=== PATIENT | female | born 1985 | race Caucasian/White ===

== ENCOUNTER 2017-04-23 17:04 | Inpatient (IN) ==
--- NOTE | 2017-04-23 18:26 | Emergency Department Note ---
Disposition Clinical Impression: Pyelonephritis Nausea & vomiting Qualifiers: Vomiting type: unspecified Vomiting Intractability: unspecified Qualified Code( s): R11.2 - Nausea with vomiting, unspecified Disposition: Admitted As Inpatient Condition: Fair Referrals: Denisse Boogie CNP [Primary Care Provider] - Time of Disposition: 21:28 Abdominal Pain HPI - General Chief Complaint: ED Abdominal Pain Stated Complaint: Lower R ABD pain/NV Time Seen by Provider: 04/23/17 18:19 Source: patient Mode of arrival: ambulatory Limitations: no limitations Nursing Notes Reviewed: Yes Vital Signs Reviewed: Yes - History of Present Illness HPI Narrative: 31-year-old who comes in complaining of right lower quadrant abdominal pain that began about 3 days ago. Been persistent and getting worse according to the patient. She does have a history of polycystic disease. No history of kidney stones denies urinary symptoms. Pt Subjective Complaint: abdominal pain Onset (ago): day(s) Consistency: constant (3) Location: RLQ Pain Severity: moderate, severe Pain Scale: 8 Quality: stabbing, aching Radiation: none Migration to: no migration Improves with: nothing Worsens with: nothing Associated symptoms: Reports: nausea Treatments prior to arrival: none - Related Data Home Medications Medication Instructions Recorded Confirmed No Known Home Drugs 02/07/17 02/07/17 Allergies Allergy/AdvReac Type Severity Reaction Status Date / Time No Known Allergies Allergy Verified 04/23/17 17:44 Abdominal Pain PMH - Past Medical History Medical history: Reports: no medical history Female Surgical History: Reports: other DOG HANDLER OR TRAINER history: Reports: no DOG HANDLER OR TRAINER history Psychiatric history: Reports: no psych history - Social History Smoking status: Never smoker Alcohol use: Reports: rarely Drug use: Reports: none Physical Exam - General Limitations: no limitations General appearance: alert - Head Head exam: atraumatic, normocephalic, normal inspection - Eye Eye exam: Present: normal appearance, PERRL, EOMI - ENT ENT exam: normal exam, normal oropharynx, mucous membranes moist - Neck Neck exam: Present: normal inspection, full ROM, trachea midline - Chest Chest inspection: Present: normal inspection, symmetric chest wall rise - Respiratory Respiratory exam: Present: normal lung sounds bilaterally - Cardiovascular Cardiovascular exam: Present: regular rate, normal rhythm, normal heart sounds - Abdominal Exam Abdominal exam: Present: soft, tenderness. Absent: guarding, rebound Abdominal tenderness: Present: RLQ - Extremities Exam Extremities exam: Present: normal inspection, full ROM. Absent: tenderness, pedal edema - Expanded Lower Extremity Exam Neurovascular/Tendon exam: Absent: motor deficit, sensory deficit, tendon deficit - Back Exam Back exam: Present: normal inspection, full ROM. Absent: tenderness - Neurological Exam Neurological exam: Present: alert, oriented X3 - Psychiatric Psychiatric exam: Present: normal affect, normal mood - Skin Skin exam: Present: warm, dry, intact, normal color Course - Reevaluation(s) Reevaluation #1: 31-year-old with a history gastric bypass who comes in with abdominal pain nausea vomiting tempt her 101.1. Workup shows urine with 30-50 white cells per high-powered field white count slightly elevated. CT scan is consistent with a pyelonephritis. Patient will be admitted for IV antibiotics and fluids. Time: 21:27 - Consultations Consultation #1: Discussed with , admit. Time: 21:28 Vital Signs Temperature 101.1 F H 04/23/17 17:44 Pulse Rate 89 04/23/17 17:44 Respiratory Rate 20 04/23/17 17:44 Blood Pressure 135/90 04/23/17 17:44 O2 Sat by Pulse Oximetry 100 04/23/17 17:44 Temperature 101.1 F H 04/23/17 17:44 Pulse Rate 89 04/23/17 17:44 Respiratory Rate 20 04/23/17 17:44 Blood Pressure 135/90 04/23/17 17:44 O2 Sat by Pulse Oximetry 100 04/23/17 17:44 Oxygen Delivery Oxygen Delivery Room Air Abdominal Pain - Lab Data Lab results reviewed: Yes I reviewed the patient's lab results. Result diagrams: 04/23/17 18:45 04/23/17 18:45 Lab Results 04/23/17 04/23/17 04/23/17 Range/Units 18:45 18:45 18:45 WBC 11.4 H (4.3-11.1) K/mcL RBC 4.97 (3.82-4.97) M/mcL Hgb 11.7 (11.5-15.4) g/dL Hct 37.5 (35.3-44.9) % MCV 75.5 L (83.0-100.0) fL MCH 23.5 L (28.0-33.3) pg MCHC 31.2 L (31.6-35.5) g/dL RDW 15.8 H (11.5-14.5) % Plt Count 327 (140-400) K/mcL MPV 10.4 (9.4-12.4) fL Immature Gran % 0.4 (0-4) % Seg Neutrophils % 74.2 % Lymphocytes % 17.2 % Monocytes % 7.3 % Eosinophils % 0.5 % Basophils % 0.4 % Neutrophils # 8.4 (1.6-8.9) K/mcL Lymphocytes # 2.0 (0.6-4.6) K/mcL Monocytes # 0.8 (0.0-1.3) K/mcL Eosinophils # 0.1 (0.0-0.6) K/mcL Basophils # 0.0 (0.0-0.2) K/mcL Sodium 138 (136-145) mEq/L Potassium 3.6 (3.5-4.5) mEq/L Chloride 105 (98-109) mEq/L Carbon Dioxide 24 (19-29) mEq/L BUN 6 L (7-20) mg/dL Creatinine 0.81 (0.57-1.11) mg/dL Est GFR ( Amer) > 60 (> 60) Est GFR (Non-Af Amer) > 60 (> 60) BUN/Creatinine Ratio 7 (6-26) Glucose 82 (70-99) mg/dL Calculated Osmolality 283 (280-300) Lactic Acid (0.5-2.2) mmol/L Calcium 9.7 (8.6-10.8) mg/dL Total Bilirubin 0.4 (0.2-1.2) mg/dL AST 15 (5-34) Units/L ALT 15 (0-55) Units/L Alkaline Phosphatase 88 (38-126) Units/L Serum Total Protein 7.9 (6.0-8.3) g/dL Albumin 3.9 (3.5-5.0) g/dL Globulin 4.0 H (2.4-3.5) g/dL Albumin/Globulin Ratio 1.0 L (1.1-2.2) Amylase 23 L (25-125) Units/L Lipase < 10 (8-78) Units/L Serum , Qual Negative (Negative) Urine Color (Yellow) Urine Clarity (Clear) Urine pH (5.0-8.0) pH Units Ur Specific Bruce (1.010-1.025) Urine Protein (Neg-Trace) mg/dL Urine Glucose (UA) (Normal) mg/dL Urine Ketones (Negative) mg/dL Urine Blood (Negative) Urine Nitrite (Negative) Urine Bilirubin (Negative) Urine Urobilinogen (Normal) mg/dL Ur Leukocyte Esterase (Negative) Urine Microscopic RBC (0-3) per hpf Urine Microscopic WBC (0-3) per hpf Ur Squamous Epith Cells (None-Few) per lpf Urine Bacteria (None-Few) per hpf Hyaline Casts (None-Few) per lpf Urine Yeast Ur Culture Indicated? (NO) Urine Test (Negative) 04/23/17 04/23/17 04/23/17 Range/Units 19:35 19:35 19:41 WBC (4.3-11.1) K/mcL RBC (3.82-4.97) M/mcL Hgb (11.5-15.4) g/dL Hct (35.3-44.9) % MCV (83.0-100.0) fL MCH (28.0-33.3) pg MCHC (31.6-35.5) g/dL RDW (11.5-14.5) % Plt Count (140-400) K/mcL MPV (9.4-12.4) fL Immature Gran % (0-4) % Seg Neutrophils % % Lymphocytes % % Monocytes % % Eosinophils % % Basophils % % Neutrophils # (1.6-8.9) K/mcL Lymphocytes # (0.6-4.6) K/mcL Monocytes # (0.0-1.3) K/mcL Eosinophils # (0.0-0.6) K/mcL Basophils # (0.0-0.2) K/mcL Sodium (136-145) mEq/L Potassium (3.5-4.5) mEq/L Chloride (98-109) mEq/L Carbon Dioxide (19-29) mEq/L BUN (7-20) mg/dL Creatinine (0.57-1.11) mg/dL Est GFR ( Amer) (> 60) Est GFR (Non-Af Amer) (> 60) BUN/Creatinine Ratio (6-26) Glucose (70-99) mg/dL Calculated Osmolality (280-300) Lactic Acid 0.9 (0.5-2.2) mmol/L Calcium (8.6-10.8) mg/dL Total Bilirubin (0.2-1.2) mg/dL AST (5-34) Units/L ALT (0-55) Units/L Alkaline Phosphatase (38-126) Units/L Serum Total Protein (6.0-8.3) g/dL Albumin (3.5-5.0) g/dL Globulin (2.4-3.5) g/dL Albumin/Globulin Ratio (1.1-2.2) Amylase (25-125) Units/L Lipase (8-78) Units/L Serum , Qual (Negative) Urine Color Yellow (Yellow) Urine Clarity Cloudy A (Clear) Urine pH 6.5 (5.0-8.0) pH Units Ur Specific Bruce 1.012 (1.010-1.025) Urine Protein Trace (Neg-Trace) mg/dL Urine Glucose (UA) Normal (Normal) mg/dL Urine Ketones 40 H (Negative) mg/dL Urine Blood Small H (Negative) Urine Nitrite Positive A (Negative) Urine Bilirubin Negative (Negative) Urine Urobilinogen Normal (Normal) mg/dL Ur Leukocyte Esterase Large H (Negative) Urine Microscopic RBC 3-5 H (0-3) per hpf Urine Microscopic WBC 30-50 H (0-3) per hpf Ur Squamous Epith Cells Many H (None-Few) per lpf Urine Bacteria Many H (None-Few) per hpf Hyaline Casts Few (None-Few) per lpf Urine Yeast Test Not Performed Ur Culture Indicated? YES A (NO) Urine Test Negative (Negative) - Radiology Data Radiology results reviewed: Yes I reviewed the patient's radiology results. Abdomen/Pelvis CT 04/23/17 20:45 IMPRESSION: Imaging findings concerning for pyelonephritis of the right kidney. Nonobstructing right renal calculus. Mild pelvic free fluid. D/ / Gerry Olivo MD / Gerry Olivo MD Interpreting Provider: Gerry Olivo MD
[2017-04-23] MEDS ORDERED: 0.9 % Sodium Chloride 1,000 ML IVC ONE (18:27)
[2017-04-23 18:55] LABS: Basophils % 0.4 %; Eosinophils # 0.1 K/mcL (0.0-0.6); Eosinophils % 0.5 %; Hematocrit 37.5 % (35.3-44.9); Hemoglobin 11.7 g/dL (11.5-15.4); Immature Granulocytes % 0.4 % (0-4); Lymphocytes % 17.2 %; Mean Corpuscular HGB Conc 31.2 g/dL (31.6-35.5); Mean Corpuscular Hemoglobin 23.5 pg (28.0-33.3); Mean Corpuscular Volume 75.5 fL (83.0-100.0); Mean Platelet Volume 10.4 fL (9.4-12.4); Monocytes # 0.8 K/mcL (0.0-1.3); Monocytes % 7.3 %; Neutrophils # 8.4 K/mcL (1.6-8.9); Platelet Count 327 K/mcL (140-400); Red Blood Count 4.97 M/mcL (3.82-4.97); Red Cell Distribution Width 15.8 % (11.5-14.5); Segmented Neutrophils % 74.2 %
[2017-04-23 19:12] LABS: Alanine Aminotransferase 15 Units/L (0-55); Albumin 3.9 g/dL (3.5-5.0); Alkaline Phosphatase 88 Units/L (38-126); Amylase 23 Units/L (25-125); Aspartate Amino Transferase 15 Units/L (5-34); BUN/Creatinine Ratio 7 (6-26); Bilirubin,Total 0.4 mg/dL (0.2-1.2); Blood Urea Nitrogen 6 mg/dL (7-20); Calcium 9.7 mg/dL (8.6-10.8); Carbon Dioxide 24 mEq/L (19-29); Chloride 105 mEq/L (98-109); Glucose 82 mg/dL (70-99); Osmolality,Calculated 283 (280-300); Potassium 3.6 mEq/L (3.5-4.5); Sodium 138 mEq/L (136-145); Total Protein 7.9 g/dL (6.0-8.3); eGFR For African Americans > 60 (> 60); eGFR For Non-African Americans > 60 (> 60)
[2017-04-23 19:13] LABS: Lipase < 10 Units/L (8-78)
[2017-04-23] MEDS ORDERED: *HR* HYDROmorphone (PF) 1 MG/ML SYRINGE IVP ONE (19:24)
[2017-04-23] MEDS ORDERED: Ondansetron 4 MG/2 ML VIAL IVP ONE (19:24)
[2017-04-23 19:45] LABS: Bilirubin,Urine Negative (Negative); Blood,Urine Small (Negative); Clarity,Urine Cloudy (Clear); Color,Urine Yellow (Yellow); Glucose,Urine (UA) Normal (Normal); Ketones,Urine 40 mg/dL (Negative); Leukocyte Esterase,Urine Large (Negative); Nitrite,Urine Positive (Negative); PH,Urine 6.5 pH Units (5.0-8.0); Protein,Urine Trace mg/dL (Neg-Trace); Specific Gravity,Urine 1.012 (1.010-1.025); Urobilinogen,Urine Normal (Normal)
[2017-04-23 19:47] LABS: Bacteria,Urine Many per hpf (None-Few); Hyaline Casts,Urine Few per lpf (None-Few); Squamous Epithelial Cell,Urine Many per lpf (None-Few); WBC,Urine 30-50 per hpf (0-3)
--- NOTE | 2017-04-23 22:05 | Event Note ---
Date of Encounter: 04/23/17 Time of Encounter: 22:04 Patient seen and examined with medical billing clerk. Acute pyelonephritis with sepsis. 2L bolus of normal saline. Ceftriaxone. Continue hydration. CT scan shows no evidence of obstructive uropathy. Inpatient admission
[2017-04-23] MEDS ORDERED: Naloxone 0.4 MG/ML INJ IVP PRN (22:18)
[2017-04-23] MEDS ORDERED: Acetaminophen 325 MG TABLET PO PRN (22:18)
[2017-04-23] MEDS ORDERED: *HR* Morphine 2 MG/ML SYRINGE IVP PRN (22:18)
[2017-04-23] MEDS ORDERED: Ondansetron 4 MG/2 ML VIAL IVP PRN (22:18)
--- NOTE | 2017-04-23 22:26 | Internal Med History&Physical ---
Date of Encounter: 04/23/17 Time of Encounter: 22:23 Assessment and Plan (1) Sepsis Current visit: Yes Status: Acute Febrile, leukocytosis, Evidence of pyelonephritis: Urinalysis WBC 50-100, nitrates, leukocyte esterase Lactic acid within normal limits Ct abdomen/pelvis shows right perinephric stranding with nonobstructing nephrolithiasis on the right Plan: Blood culture urine culture pending: De-escalate antibiotics accordingly Ceftriaxone IV fluids CBC BMP Regular diet Qualifiers: Sepsis type: sepsis due to unspecified organism Qualified Code(s): A41.9 - Sepsis, unspecified organism (2) Pyelonephritis Current visit: Yes Status: Acute Plan as above (3) DVT prophylaxis Current visit: Yes Status: Acute Heparin subcutaneous (4) Nausea & vomiting Current visit: Yes Status: Acute Improved Zofran IV Qualifiers: Vomiting type: unspecified Vomiting Intractability: non-intractable Qualified Code(s): R11.2 - Nausea with vomiting, unspecified Internal Medicine - H&P: HPI Chief complaint: Abdominal pain Admitted From: Home Plans for Post Hospital Care: Home History of present illness: Ms. Sales is a 31 year old female history of PCOS, gastric bypass, and iron deficiency anemia presents with chief complaint of right lower quadrant abdominal pain. Patient states this started Saturday discriminate sharp, intermittent, cramping pain associated with nausea and vomiting. Denies hx of kidney stones or family hx of kidney stones. Patient had recurrent pain for 3 days followed by vomiting. She reports decreased appetite, dry mouth, feeling lethargic, fever, chills. Today her right abdominal pain transitioned to right flank pain. Patient was found to have a fever 101, leukocytosis, CT abdomen showed right perinephric fat stranding. test was negative. Patient was started on ceftriaxone. Past Med Surg Social Fam HX - Past Medical History Medical history: no medical history, other (Iron deficiency anemia, PCOS) Psychiatric history: no psych history - Past Surgical History Surgical History: other (Gastric bypass) - Social History Smoking Status: Never smoker Smokeless Tobacco Status: No Alcohol use: rarely Drug use: none Internal Medicine - H&P: Meds No Known Home Drugs 02/07/17 [History] Allergies No Known Allergies Allergy (Verified 04/23/17 17:44) All Systems PM: A 10-system review of systems was performed and is negative for pertinent findings except as documented above in the HPI. Review of systems: Constitutional: Reports fevers and chills HEENT: Denies headache, vision changes, neck pain, sore throat, rhinorrhea Heart: Denies chest pain palpitations Lungs: Denies shortness of breath cough Abdomen: Reports abdominal pain and right lower quadrant, nausea, vomiting Back: Reports right flank pain, low back pain Kidney: Denies dysuria, hematuria. Reports frequency Extremities: Denies swelling, pain Neuro: Denies numbness, and tingling - Constitutional Vitals: Temp Pulse Resp BP Pulse Ox 98.4 F 77 20 0/0 98 04/23/17 21:30 04/23/17 21:30 04/23/17 22:08 04/23/17 22:08 04/23/17 21:30 - Other Additional findings: General: Alert and oriented to place time and situation. Without distress HEENT: Head atraumatic, normocephalic, EOMI, PERRLA, neck nontender to palpation , absent Lymphadenopathy, Moist Mucous Membranes, Heart: Regular rate and rhythm with no murmur Lungs: Clear to auscultation bilaterally Abdomen: Soft , positive bowel sounds, nondistended, mild tenderness to right lower quadrant with deep palpation Extremities: Absent pedal edema, Back: Positive Bhavin's punch test on the right Neuro: Cranial nerves II through XII intact, sensation equal bilaterally, strength upper and lower extremity 5/5, alert oriented 3 Vascular: Pedal and radialpulses 2 out of 4 Internal Med - H&P Results - Labs CBC & Chem 7: 04/23/17 18:45 04/23/17 18:45
[2017-04-23] MEDS: 0.9 % Sodium Chloride 1,000 ML IVC SCH (23:03)
[2017-04-24 04:14] LABS: Basophils % 0.4 %; Eosinophils # 0.1 K/mcL (0.0-0.6); Eosinophils % 1.1 %; Hematocrit 32.4 % (35.3-44.9); Hemoglobin 10.2 g/dL (11.5-15.4); Immature Granulocytes % 0.3 % (0-4); Lymphocytes # 2.1 K/mcL (0.6-4.6); Lymphocytes % 23.4 %; Mean Corpuscular HGB Conc 31.5 g/dL (31.6-35.5); Mean Corpuscular Volume 76.2 fL (83.0-100.0); Mean Platelet Volume 10.4 fL (9.4-12.4); Monocytes % 10.9 %; Neutrophils # 5.8 K/mcL (1.6-8.9); Platelet Count 295 K/mcL (140-400); Red Blood Count 4.25 M/mcL (3.82-4.97); Red Cell Distribution Width 15.8 % (11.5-14.5); Segmented Neutrophils % 63.9 %
[2017-04-24 04:26] LABS: BUN/Creatinine Ratio 12 (6-26); Blood Urea Nitrogen 9 mg/dL (7-20); Carbon Dioxide 26 mEq/L (19-29); Chloride 108 mEq/L (98-109); Glucose 102 mg/dL (70-99); Osmolality,Calculated 289 (280-300); Potassium 3.7 mEq/L (3.5-4.5); Sodium 140 mEq/L (136-145); eGFR For African Americans > 60 (> 60); eGFR For Non-African Americans > 60 (> 60)
[2017-04-24] MEDS: *HR* Heparin 5,000 UNIT/ML VIAL SQ SCH ×2 (06:03→15:27)
[2017-04-24] MEDS: *HR* HYDROcodone/Acet 5/325 mg TABLET PO PRN ×2 (08:37→15:28)
[2017-04-24] MEDS ORDERED: Fluconazole 100 MG TABLET PO ONE (14:28)
--- NOTE | 2017-04-24 14:58 | Internal Med Progress Note ---
Date of Encounter: 04/24/17 Time of Encounter: 09:15 - Assessment and plan (1) Pyelonephritis Current Visit: Yes Status: Acute Assessment and plan: Initially presented with sepsis - secondary to Pyelonephritis - now improving continue IV Rocephin, IV fluids UA - positive for nitrite and leukocyte esterase CT Abd/pelvis - right perinephric stranding, right sight punctate nonobstructing renal calculus Cultures - pending Lactic acid - 0.9 labs in a.m (2) Renal calculus Current Visit: Yes Status: Acute Assessment and plan: Punctate stone within right kidney - non obstructing Urology consult if needed (3) DVT prophylaxis Current Visit: Yes Status: Acute Assessment and plan: continue Heparin sc - Time Spent With Patient 25 - 35 minutes - Subjective Interval history: Examined this morning. Patient is awake and alert. Not in any distress. Complains of right flank pain, which is sharp and intermittent. Rates it 6/10. Alleviated with pain meds. No fever. Denies chest pain or shortness of breath. No other acute events or complaints. - Constitutional Vitals: Temp Pulse Resp BP Pulse Ox 98.3 F 72 16 117/79 96 04/24/17 11:38 04/24/17 11:38 04/24/17 11:38 04/24/17 11:38 04/24/17 11:38 General appearance: Present: A&O X 3, morbidly obese, pleasant, no acute distress, answers questions appropriately - Head Head exam: Present: atraumatic - Eye Eye exam: Present: EOMI - ENT ENT exam: Present: mucous membranes moist - Neck Neck exam general surgery: Present: supple - Respiratory Respiratory exam: Present: CTAB. Absent: rales, rhonchi, stridor, wheezes, tachypnea - Cardiovascular Cardiovascular exam: Present: RRR, +S2 - GI/Abdominal GI/Abdominal exam: Present: soft, tenderness (mild right flank tenderness and right CVA tenderness), no peritoneal signs. Absent: distended, firm, guarding, rigid - Extremities Exam Extremities exam: Present: radial pulses palpable and symetrical. Absent: cyanotic, pedal edema, tenderness - Neurological Exam Neurological exam: Present: alert, oriented X3, no focal deficits Internal Medicine: Result - Labs CBC & Chem 7: 04/24/17 03:39 04/24/17 03:39 Labs: Short CBC 08/02/17 Range/Units 03:39 WBC 9.2 (4.3-11.1) K/mcL Hgb 10.2 L D (11.5-15.4) g/dL Hct 32.4 L (35.3-44.9) % Plt Count 295 (140-400) K/mcL Neutrophils # 5.8 (1.6-8.9) K/mcL BMP 04/24/17 03:39 Sodium 140 Potassium 3.7 Chloride 108 Carbon Dioxide 26 BUN 9 Creatinine 0.75 Glucose 102 H Calcium 9.0 Consult Discharge Plan - Plan Referrals: Denisse Boogie, SOUND ART INSTRUCTOR [Primary Care Provider] -
[2017-04-24] MEDS: 0.9 % Sodium Chloride 1,000 ML IVC SCH (15:31)
[2017-04-25 04:34] LABS: Basophils # 0.1 K/mcL (0.0-0.2); Basophils % 0.5 %; Eosinophils # 0.2 K/mcL (0.0-0.6); Eosinophils % 2.3 %; Hemoglobin 9.9 g/dL (11.5-15.4); Immature Granulocytes % 0.2 % (0-4); Lymphocytes # 3.4 K/mcL (0.6-4.6); Lymphocytes % 34.8 %; Mean Corpuscular HGB Conc 30.9 g/dL (31.6-35.5); Mean Corpuscular Hemoglobin 23.6 pg (28.0-33.3); Mean Corpuscular Volume 76.4 fL (83.0-100.0); Mean Platelet Volume 10.6 fL (9.4-12.4); Monocytes # 0.9 K/mcL (0.0-1.3); Monocytes % 8.9 %; Neutrophils # 5.2 K/mcL (1.6-8.9); Platelet Count 289 K/mcL (140-400); Red Blood Count 4.19 M/mcL (3.82-4.97); Red Cell Distribution Width 15.9 % (11.5-14.5); Segmented Neutrophils % 53.3 %
[2017-04-25] MEDS: *HR* Heparin 5,000 UNIT/ML VIAL SQ SCH (06:07)
[2017-04-25 11:34] VITALS: BP 106/75
--- NOTE | 2017-04-25 13:18 | Discharge Summary ---
Date of Encounter: 04/25/17 Time of Encounter: 08:50 - Discharge Diagnosis (1) Pyelonephritis Priority: Primary Status: Acute Comments: Sepsis secondary to pyelonephritis - now improved Continue PO antibiotics Urine culture - positive for gram-negative rods (2) Renal calculus Priority: Primary Status: Acute Comments: outpatient follow up with urology - Discharge Medications Prescriptions: HYDROcodone/Acet 5/325 mg [[place] 5-325 mg] 1 tab PO Q6H PRN #7 tab PRN Reason: Moderate Pain (4-6) Sulfamethoxazole/Trimeth DS [Bactrim DS] 1 each PO BID 14 Days Home Medications: No Known Home Drugs 02/07/17 [History] HYDROcodone/Acet 5/325 mg [[place]us 5-325 mg] 1 tab PO Q6H PRN #7 tab 04/25/17 [Rx] Sulfamethoxazole/Trimeth DS [Bactrim DS] 1 each PO BID 14 Days 04/25/17 [Rx] Allergies/Adverse Reactions: Allergies No Known Allergies Allergy (Verified 04/23/17 17:44) Date of admission: 04/23/17 22:32 Primary care physician: Denisse Boogie CNP Anticipated date of discharge: 04/25/17 - Patient Status Disposition: Home, Self-Care Condition: Good Overall status at discharge: patient is progressing back to baseline - Discharge Instructions Instructions: Acute Pyelonephritis (DC), Acute Nausea and Vomiting (DC) Follow Up With: Luís Dinero MD [Partnered Physician] - 04/29/17 9:30 am Forms: ED Satisfaction Letter, Work/School Release - Diet and Activity Activity: resume usual activities as tolerated Diet: advance to your usual diet Hospital course: Ms. Sales is a 31 year old female with past medical history of chronic anemia and PCO OS. She presented to the with complaints of right lower quadrant abdominal pain. Pain was sharp and intermittent and cramping. Associated with nausea and vomiting. She denied history of kidney stones. Also complained of decreased appetite and feeling lethargic with chills. CT scan of the abdomen and pelvis revealed pyelonephritis of the right kidney and also nonobstructing right renal calculus. UA was positive for nitrites and leukocyte esterase. Patient was started on IV fluids, she was on empiric IV Rocephin and IV morphine as needed for pain. Her leukocytosis has now resolved. Her pain is now improved. She is tolerating oral diet well and ventilating well. Her original culture is positive for gram-negative rods. We do not have the sensitivities as yet but patient is being discharged on Bactrim double strength to this time. She received 2 doses of Rocephin in the hospital. Patient has been advised to follow up with urology as outpatient in view of nonobstructing renal calculus and pyelonephritis. Patient has been explained about her condition and plan of care in detail. She understood and agreed. Urology appointment has been scheduled for 04/29/2017. She has been advised to drink plenty of water and to complete her antibiotic course. She has been advised to return to ER immediately if she develops more pain or any other symptoms. She had no other acute events or complications during her stay in the hospital. She is being discharged in stable condition. - Time Spent with Patient Total time spent providing and/or coordinating discharge services: Less than 30 minutes - Constitutional Vitals: Temp Pulse Resp BP Pulse Ox 98.1 F 55 16 106/75 95 04/25/17 11:32 04/25/17 11:32 04/25/17 11:32 04/25/17 11:32 04/25/17 11:32 General appearance: Present: A&O X 3, morbidly obese, pleasant, no acute distress, answers questions appropriately - Head Head exam: Present: atraumatic - Eye Eye exam: Present: EOMI - ENT ENT exam: Present: mucous membranes moist - Neck Neck exam general surgery: Present: supple - Respiratory Respiratory exam: Present: CTAB. Absent: rales, rhonchi, stridor, wheezes, tachypnea - Cardiovascular Cardiovascular exam: Present: RRR, +S1, +S2 - GI/Abdominal GI/Abdominal exam: Present: soft, tenderness (Mild right flank and right CVA tenderness - now improved), no peritoneal signs. Absent: distended, firm, guarding, rebound, rigid - Extremities Exam Extremities exam: Present: radial pulses palpable and symetrical. Absent: cyanotic, pedal edema, tenderness - Neurological Exam Neurological exam: Present: alert, oriented X3, no focal deficits
== END 2017-04-25 14:30 | disposition home or self-care (01) | DRG 720 ==
LOC: EMEROO 17:04 → 3ANU 17:04
PROVIDERS: ADMIT Hospitalist; ATTEND Family Medicine

== ENCOUNTER 2018-12-26 21:52 | Observation (INO) ==
[2018-12-26 23:15] LABS: Bilirubin,Urine Negative (Negative); Blood,Urine Negative (Negative); Clarity,Urine Cloudy (Clear); Color,Urine Yellow (Yellow); Glucose,Urine (UA) Normal (Normal); Ketones,Urine Negative (Negative); Leukocyte Esterase,Urine Small (Negative); Nitrite,Urine Negative (Negative); PH,Urine 5.5 pH Units (5.0-8.0); Protein,Urine Trace mg/dL (Neg-Trace); Specific Gravity,Urine > 1.030 (1.010-1.025); Urobilinogen,Urine Normal (Normal)
[2018-12-26 23:17] LABS: Bacteria,Urine Moderate per hpf (None-Few); Hyaline Casts,Urine Moderate per lpf (None-Few); Squamous Epithelial Cell,Urine Many per lpf (None-Few); WBC,Urine 30-50 per hpf (0-3)
[2018-12-26 23:36] LABS: Calcium Oxalate Crystals,Urine Present
[2018-12-26 23:46] LABS: Basophils % 0.3 %; Eosinophils # 0.1 K/mcL (0.0-0.6); Eosinophils % 0.9 %; Hematocrit 36.4 % (35.3-44.9); Hemoglobin 11.5 g/dL (11.5-15.4); Immature Granulocytes % 0.4 % (0-4); Lymphocytes # 1.9 K/mcL (0.6-4.6); Lymphocytes % 26.4 %; Mean Corpuscular HGB Conc 31.6 g/dL (31.6-35.5); Mean Corpuscular Hemoglobin 24.5 pg (28.0-33.3); Mean Corpuscular Volume 77.4 fL (83.0-100.0); Mean Platelet Volume 10.2 fL (9.4-12.4); Monocytes # 0.7 K/mcL (0.0-1.3); Monocytes % 10.6 %; Neutrophils # 4.3 K/mcL (1.6-8.9); Platelet Count 278 K/mcL (140-400); Red Cell Distribution Width 16.3 % (11.5-14.5); Segmented Neutrophils % 61.4 %
[2018-12-26 23:58] LABS: Alanine Aminotransferase 10 Units/L (7-52); Albumin/Globulin Ratio 1.3 (1.1-2.2); Alkaline Phosphatase 65 Units/L (34-104); Aspartate Amino Transferase 13 Units/L (13-39); BUN/Creatinine Ratio 16 (6-26); Bilirubin,Direct 0.1 mg/dL (0.0-0.2); Bilirubin,Indirect 0.1 mg/dL (0.0-1.2); Bilirubin,Total 0.2 mg/dL (0.3-1.0); Blood Urea Nitrogen 9 mg/dL (6-20); Calcium 9.2 mg/dL (8.6-10.3); Carbon Dioxide 22 mEq/L (23-29); Chloride 105 mEq/L (98-107); Globulin 3.2 g/dL (2.4-3.5); Glucose 87 mg/dL (70-105); Osmolality,Calculated 278 (280-300); Potassium 3.7 mEq/L (3.5-5.1); Sodium 135 mEq/L (136-145); Total Protein 7.2 g/dL (6.4-8.9); eGFR For Non-African Americans > 60 (> 60)
[2018-12-27] MEDS ORDERED: cefTRIAXone 1,000 MG in Water for inj. (sterile) 20 ML 10 ML IVP ONE (01:52)
[2018-12-27] MEDS ORDERED: 0.9 % Sodium Chloride 1,000 ML IVC ONE (01:52)
--- NOTE | 2018-12-27 01:56 | Emergency Department Note ---
Disposition Clinical Impression: Pyelonephritis, 12 weeks gestation of Disposition: Admitted As Inpatient Condition: Fair Time of Disposition: 02:22 General Adult HPI - General Chief complaint: ED Abdominal Pain Stated complaint: UTI Time Seen by Provider: 12/27/18 01:26 Source: patient Mode of arrival: ambulatory Limitations: no limitations Nursing Notes Reviewed: Yes Vital Signs Reviewed: Yes - History of Present Illness HPI Narrative: 33-year-old female A3 at roughly 12 weeks gestation age arrives to the emergency department with feeling ill over the course the past few days. The patient states that 4 days ago she went to as soon see emergency department for vaginal bleeding with concern for miscarriage. The patient states they performed an ultrasound stated the baby's heart rate was within normal limits and she had a urinary tract infection. The patient states that she is continued to experience worsening symptoms to include fever as high as 102 degrees Fahrenheit and the pain is now moving into her back. He should states the vaginal bleeding has subsequently subsided. Patient denies any other complaints at this time. She is in no acute distress on evaluation in the room. Lab work stretcher findings consistent with a urinary tract infection. Pain Scale: 0 - Related Data Previous Rx's Medication Instructions Recorded HYDROcodone/Acet 5/325 mg [[place] 1 tab PO Q4H PRN #15 tab 07/10/17 5-325 mg] Ondansetron ODT [Zofran ODT] 4 mg SL Q4HR #15 tab.rapdis 07/10/17 Allergies Allergy/AdvReac Type Severity Reaction Status Date / Time No Known Allergies Allergy Verified 12/26/18 22:17 All systems ED: reviewed and negative except as stated. Constitutional: Reports: fever, chills, weakness ENT ED: Denies: dysphagia Cardiovascular: Denies: chest pain Respiratory: Denies: dyspnea Gastrointestinal: Denies: abdominal pain, nausea, vomiting, diarrhea, constipation Genitourinary: Reports: urgency, dysuria, frequency, hematuria, abnormal menses. Denies: discharge Musculoskeletal: Reports: back pain. Denies: neck pain Integumentary: Denies: rash Neurological: Denies: headache Past Medical History - Past Medical History Attestation: Yes The following information was validated with the patient. Source: patient, old records reviewed Medical history: Reports: other Surgical history: Reports: other (Gastric bypass) Psychiatric history: Reports: no psych history SPLICER OPERATOR history: Reports: no SPLICER OPERATOR history, spontaneous : 5 Para: 2 Ab: 2 - Social History Smoking Status: Never smoker Smokeless Tobacco Status: No Alcohol use: Reports: none Drug use: Reports: none Physical Exam - General Limitations: no limitations General appearance: alert, in no apparent distress - Head Head exam: atraumatic, normocephalic, normal inspection - Eye Eye exam: Present: normal appearance, PERRL, EOMI - ENT ENT exam: normal exam, normal oropharynx, mucous membranes moist - Neck Neck exam: Present: normal inspection, full ROM, trachea midline - Chest Chest inspection: Present: normal inspection, symmetric chest wall rise - Respiratory Respiratory exam: Present: normal lung sounds bilaterally - Cardiovascular Cardiovascular exam: Present: regular rate, normal rhythm, normal heart sounds - Abdominal Exam Abdominal exam: Present: soft, Non-Tender. Absent: tenderness, distention, guarding, rebound, rigidity - Extremities Exam Extremities exam: Present: normal inspection, full ROM. Absent: tenderness, pedal edema - Neurological Exam Neurological exam: Present: alert, oriented X3 - Skin Skin exam: Present: warm, dry, intact, normal color Course - Consultations Consultation #1: I spoke with contract engineer SPLICER OPERATOR nurse practitioner, Yara Villela. No further recommendations were noted. Time: 02:06 Vital Signs Temperature 99.0 F 12/26/18 22:17 Pulse Rate 95 12/26/18 22:17 Respiratory Rate 16 12/26/18 22:17 Blood Pressure 139/81 12/26/18 22:17 O2 Sat by Pulse Oximetry 97 12/26/18 22:17 Temperature 99.0 F 12/26/18 22:17 Pulse Rate 95 12/26/18 22:17 Respiratory Rate 16 12/26/18 22:17 Blood Pressure 139/81 12/26/18 22:17 O2 Sat by Pulse Oximetry 97 12/26/18 22:17 Oxygen Delivery Oxygen Delivery Room Air Procedures - Ultrasound-Other Narrative: [id number] ultrasound of the patient's uterus revealed an intrauterine with good movement. heart rate in the ED 160s. Noted at 167 on initial evaluation but difficult to completely assess secondary to fetus moving around. Medical Decision Making - MDM Narrative Medical decision making narrative: Patient findings consistent with pyelonephritis. The patient will be admitted to the hospital at this time. Accepted by Dr. Escobar. - Lab Data Lab results reviewed: Yes I reviewed the patient's lab results. Result diagrams: 12/26/18 23:13 12/26/18 23:13 Lab Results 12/26/18 12/26/18 12/26/18 Range/Units 22:24 23:13 23:13 WBC 7.0 (4.3-11.1) K/mcL RBC 4.70 (3.82-4.97) M/mcL Hgb 11.5 (11.5-15.4) g/dL Hct 36.4 (35.3-44.9) % MCV 77.4 L (83.0-100.0) fL MCH 24.5 L (28.0-33.3) pg MCHC 31.6 (31.6-35.5) g/dL RDW 16.3 H (11.5-14.5) % Plt Count 278 (140-400) K/mcL MPV 10.2 (9.4-12.4) fL Immature Gran % 0.4 (0-4) % Seg Neutrophils % 61.4 % Lymphocytes % 26.4 % Monocytes % 10.6 % Eosinophils % 0.9 % Basophils % 0.3 % Neutrophils # 4.3 (1.6-8.9) K/mcL Lymphocytes # 1.9 (0.6-4.6) K/mcL Monocytes # 0.7 (0.0-1.3) K/mcL Eosinophils # 0.1 (0.0-0.6) K/mcL Basophils # 0.0 (0.0-0.2) K/mcL Sodium (136-145) mEq/L Potassium (3.5-5.1) mEq/L Chloride (98-107) mEq/L Carbon Dioxide (23-29) mEq/L BUN (6-20) mg/dL Creatinine (0.60-1.20) mg/dL Est GFR ( Amer) (> 60) Est GFR (Non-Af Amer) (> 60) BUN/Creatinine Ratio (6-26) Glucose (70-105) mg/dL Calculated Osmolality (280-300) Calcium (8.6-10.3) mg/dL Total Bilirubin (0.3-1.0) mg/dL Direct Bilirubin (0.0-0.2) mg/dL Indirect Bilirubin (0.0-1.2) mg/dL AST (13-39) Units/L ALT (7-52) Units/L Alkaline Phosphatase (34-104) Units/L Serum Total Protein (6.4-8.9) g/dL Albumin (3.5-5.7) g/dL Globulin (2.4-3.5) g/dL Albumin/Globulin Ratio (1.1-2.2) Beta HCG, Quant 78666 H (Less than 5) mIU/mL Urine Color Yellow (Yellow) Urine Clarity Cloudy A (Clear) Urine pH 5.5 (5.0-8.0) pH Units Ur Specific [place] > 1.030 H (1.010-1.025) Urine Protein Trace (Neg-Trace) mg/dL Urine Glucose (UA) Normal (Normal) mg/dL Urine Ketones Negative (Negative) mg/dL Urine Blood Negative (Negative) Urine Nitrite Negative (Negative) Urine Bilirubin Negative (Negative) Urine Urobilinogen Normal (Normal) mg/dL Ur Leukocyte Esterase Small H (Negative) Urine Microscopic WBC 30-50 H (0-3) per hpf Ur Squamous Epith Cells Many H (None-Few) per lpf Calcium Oxalate Crystal Present Urine Bacteria Moderate H (None-Few) per hpf Hyaline Casts Moderate H (None-Few) per lpf Ur Culture Indicated? NO. A (NO) 12/26/18 Range/Units 23:13 WBC (4.3-11.1) K/mcL RBC (3.82-4.97) M/mcL Hgb (11.5-15.4) g/dL Hct (35.3-44.9) % MCV (83.0-100.0) fL MCH (28.0-33.3) pg MCHC (31.6-35.5) g/dL RDW (11.5-14.5) % Plt Count (140-400) K/mcL MPV (9.4-12.4) fL Immature Gran % (0-4) % Seg Neutrophils % % Lymphocytes % % Monocytes % % Eosinophils % % Basophils % % Neutrophils # (1.6-8.9) K/mcL Lymphocytes # (0.6-4.6) K/mcL Monocytes # (0.0-1.3) K/mcL Eosinophils # (0.0-0.6) K/mcL Basophils # (0.0-0.2) K/mcL Sodium 135 L (136-145) mEq/L Potassium 3.7 (3.5-5.1) mEq/L Chloride 105 (98-107) mEq/L Carbon Dioxide 22 L (23-29) mEq/L BUN 9 (6-20) mg/dL Creatinine 0.56 L (0.60-1.20) mg/dL Est GFR ( Amer) > 60 (> 60) Est GFR (Non-Af Amer) > 60 (> 60) BUN/Creatinine Ratio 16 (6-26) Glucose 87 (70-105) mg/dL Calculated Osmolality 278 L (280-300) Calcium 9.2 (8.6-10.3) mg/dL Total Bilirubin 0.2 L (0.3-1.0) mg/dL Direct Bilirubin 0.1 (0.0-0.2) mg/dL Indirect Bilirubin 0.1 (0.0-1.2) mg/dL AST 13 (13-39) Units/L ALT 10 (7-52) Units/L Alkaline Phosphatase 65 (34-104) Units/L Serum Total Protein 7.2 (6.4-8.9) g/dL Albumin 4.0 (3.5-5.7) g/dL Globulin 3.2 (2.4-3.5) g/dL Albumin/Globulin Ratio 1.3 (1.1-2.2) Beta HCG, Quant (Less than 5) mIU/mL Urine Color (Yellow) Urine Clarity (Clear) Urine pH (5.0-8.0) pH Units Ur Specific [place] (1.010-1.025) Urine Protein (Neg-Trace) mg/dL Urine Glucose (UA) (Normal) mg/dL Urine Ketones (Negative) mg/dL Urine Blood (Negative) Urine Nitrite (Negative) Urine Bilirubin (Negative) Urine Urobilinogen (Normal) mg/dL Ur Leukocyte Esterase (Negative) Urine Microscopic WBC (0-3) per hpf Ur Squamous Epith Cells (None-Few) per lpf Calcium Oxalate Crystal Urine Bacteria (None-Few) per hpf Hyaline Casts (None-Few) per lpf Ur Culture Indicated? (NO)
--- NOTE | 2018-12-27 03:31 | Emergency Department Note ---
Disposition Clinical Impression: Pyelonephritis, 12 weeks gestation of Disposition: Admitted As Inpatient Condition: Fair General Adult HPI - General Chief complaint: ED Abdominal Pain Stated complaint: UTI Time Seen by Provider: 12/27/18 01:26 Source: patient Mode of arrival: ambulatory Limitations: no limitations Nursing Notes Reviewed: Yes Vital Signs Reviewed: Yes - History of Present Illness Pain Scale: 0 - Related Data Previous Rx's Medication Instructions Recorded HYDROcodone/Acet 5/325 mg [[place] 1 tab PO Q4H PRN #15 tab 07/10/17 5-325 mg] Ondansetron ODT [Zofran ODT] 4 mg SL Q4HR #15 tab.rapdis 07/10/17 Allergies Allergy/AdvReac Type Severity Reaction Status Date / Time No Known Allergies Allergy Verified 12/26/18 22:17 Constitutional: Reports: fever, chills, weakness ENT ED: Denies: dysphagia Cardiovascular: Denies: chest pain Respiratory: Denies: dyspnea Gastrointestinal: Denies: abdominal pain, nausea, vomiting, diarrhea, constipation Genitourinary: Reports: urgency, dysuria, frequency, hematuria, abnormal menses. Denies: discharge Musculoskeletal: Reports: back pain. Denies: neck pain Integumentary: Denies: rash Neurological: Denies: headache Past Medical History - Past Medical History Medical history: Reports: other Surgical history: Reports: other (Gastric bypass) Psychiatric history: Reports: no psych history WELFARE SERVICE AIDE history: Reports: no WELFARE SERVICE AIDE history, spontaneous : 5 Para: 2 Ab: 2 - Social History Smoking Status: Never smoker Smokeless Tobacco Status: No Alcohol use: Reports: none Drug use: Reports: none Physical Exam - General Limitations: no limitations General appearance: alert, in no apparent distress Course Vital Signs Temperature 99.0 F 12/26/18 22:17 Pulse Rate 95 12/26/18 22:17 Respiratory Rate 16 12/26/18 22:17 Blood Pressure 139/81 12/26/18 22:17 O2 Sat by Pulse Oximetry 97 12/26/18 22:17 Temperature 99.0 F 12/26/18 22:17 Pulse Rate 75 12/27/18 02:22 Respiratory Rate 18 12/27/18 02:22 Blood Pressure 100/51 12/27/18 02:22 O2 Sat by Pulse Oximetry 99 04/06/19 02:22 Oxygen Delivery Oxygen Delivery Room Air Medical Decision Making - Lab Data Lab results reviewed: Yes I reviewed the patient's lab results. Result diagrams: 12/26/18 23:13 12/26/18 23:13 Lab Results 12/26/18 12/26/18 12/26/18 Range/Units 22:24 23:13 23:13 WBC 7.0 (4.3-11.1) K/mcL RBC 4.70 (3.82-4.97) M/mcL Hgb 11.5 (11.5-15.4) g/dL Hct 36.4 (35.3-44.9) % MCV 77.4 L (83.0-100.0) fL MCH 24.5 L (28.0-33.3) pg MCHC 31.6 (31.6-35.5) g/dL RDW 16.3 H (11.5-14.5) % Plt Count 278 (140-400) K/mcL MPV 10.2 (9.4-12.4) fL Immature Gran % 0.4 (0-4) % Seg Neutrophils % 61.4 % Lymphocytes % 26.4 % Monocytes % 10.6 % Eosinophils % 0.9 % Basophils % 0.3 % Neutrophils # 4.3 (1.6-8.9) K/mcL Lymphocytes # 1.9 (0.6-4.6) K/mcL Monocytes # 0.7 (0.0-1.3) K/mcL Eosinophils # 0.1 (0.0-0.6) K/mcL Basophils # 0.0 (0.0-0.2) K/mcL Sodium (136-145) mEq/L Potassium (3.5-5.1) mEq/L Chloride (98-107) mEq/L Carbon Dioxide (23-29) mEq/L BUN (6-20) mg/dL Creatinine (0.60-1.20) mg/dL Est GFR ( Amer) (> 60) Est GFR (Non-Af Amer) (> 60) BUN/Creatinine Ratio (6-26) Glucose (70-105) mg/dL Calculated Osmolality (280-300) Calcium (8.6-10.3) mg/dL Total Bilirubin (0.3-1.0) mg/dL Direct Bilirubin (0.0-0.2) mg/dL Indirect Bilirubin (0.0-1.2) mg/dL AST (13-39) Units/L ALT (7-52) Units/L Alkaline Phosphatase (34-104) Units/L Serum Total Protein (6.4-8.9) g/dL Albumin (3.5-5.7) g/dL Globulin (2.4-3.5) g/dL Albumin/Globulin Ratio (1.1-2.2) Beta HCG, Quant 77983 H (Less than 5) mIU/mL Urine Color Yellow (Yellow) Urine Clarity Cloudy A (Clear) Urine pH 5.5 (5.0-8.0) pH Units Ur Specific [place] > 1.030 H (1.010-1.025) Urine Protein Trace (Neg-Trace) mg/dL Urine Glucose (UA) Normal (Normal) mg/dL Urine Ketones Negative (Negative) mg/dL Urine Blood Negative (Negative) Urine Nitrite Negative (Negative) Urine Bilirubin Negative (Negative) Urine Urobilinogen Normal (Normal) mg/dL Ur Leukocyte Esterase Small H (Negative) Urine Microscopic WBC 30-50 H (0-3) per hpf Ur Squamous Epith Cells Many H (None-Few) per lpf Calcium Oxalate Crystal Present Urine Bacteria Moderate H (None-Few) per hpf Hyaline Casts Moderate H (None-Few) per lpf Ur Culture Indicated? NO. A (NO) 12/26/18 Range/Units 23:13 WBC (4.3-11.1) K/mcL RBC (3.82-4.97) M/mcL Hgb (11.5-15.4) g/dL Hct (35.3-44.9) % MCV (83.0-100.0) fL MCH (28.0-33.3) pg MCHC (31.6-35.5) g/dL RDW (11.5-14.5) % Plt Count (140-400) K/mcL MPV (9.4-12.4) fL Immature Gran % (0-4) % Seg Neutrophils % % Lymphocytes % % Monocytes % % Eosinophils % % Basophils % % Neutrophils # (1.6-8.9) K/mcL Lymphocytes # (0.6-4.6) K/mcL Monocytes # (0.0-1.3) K/mcL Eosinophils # (0.0-0.6) K/mcL Basophils # (0.0-0.2) K/mcL Sodium 135 L (136-145) mEq/L Potassium 3.7 (3.5-5.1) mEq/L Chloride 105 (98-107) mEq/L Carbon Dioxide 22 L (23-29) mEq/L BUN 9 (6-20) mg/dL Creatinine 0.56 L (0.60-1.20) mg/dL Est GFR ( Amer) > 60 (> 60) Est GFR (Non-Af Amer) > 60 (> 60) BUN/Creatinine Ratio 16 (6-26) Glucose 87 (70-105) mg/dL Calculated Osmolality 278 L (280-300) Calcium 9.2 (8.6-10.3) mg/dL Total Bilirubin 0.2 L (0.3-1.0) mg/dL Direct Bilirubin 0.1 (0.0-0.2) mg/dL Indirect Bilirubin 0.1 (0.0-1.2) mg/dL AST 13 (13-39) Units/L ALT 10 (7-52) Units/L Alkaline Phosphatase 65 (34-104) Units/L Serum Total Protein 7.2 (6.4-8.9) g/dL Albumin 4.0 (3.5-5.7) g/dL Globulin 3.2 (2.4-3.5) g/dL Albumin/Globulin Ratio 1.3 (1.1-2.2) Beta HCG, Quant (Less than 5) mIU/mL Urine Color (Yellow) Urine Clarity (Clear) Urine pH (5.0-8.0) pH Units Ur Specific [place] (1.010-1.025) Urine Protein (Neg-Trace) mg/dL Urine Glucose (UA) (Normal) mg/dL Urine Ketones (Negative) mg/dL Urine Blood (Negative) Urine Nitrite (Negative) Urine Bilirubin (Negative) Urine Urobilinogen (Normal) mg/dL Ur Leukocyte Esterase (Negative) Urine Microscopic WBC (0-3) per hpf Ur Squamous Epith Cells (None-Few) per lpf Calcium Oxalate Crystal Urine Bacteria (None-Few) per hpf Hyaline Casts (None-Few) per lpf Ur Culture Indicated? (NO) Attestation Statement - Attestation Attestation: I, Josh Weinstein MD, personally evaluated this patient and discussed their management with the resident physician. I reviewed the resident's note and agree with the documented findings, medical decision making, and plan of care. 33-year-old female who is approximately 12 weeks presents to the emergency department complaining of urinary infection. She was started on antibiotics about 3 days ago for UTI. Yesterday she started having fever along with nausea and vomiting and back pain. Increase lower abdominal pain. On examination patient is a well-developed obese female in no acute distress. She is alert and oriented 3. There is no cyanosis or diaphoresis. Breath sounds are clear and equal bilaterally. Heart regular rate and rhythm. Abdomen is soft with normal bowel sounds. Mild mid lower abdominal tenderness. Labs reviewed. Dr. Miguel discussed the case with the OB certified nurse midwife. The hospitalist, Dr. Escobar, was consulted and accepted admission of the patient.
[2018-12-27] MEDS ORDERED: Acetaminophen 325 MG TABLET PO PRN (06:05)
[2018-12-27] MEDS ORDERED: Naloxone 0.4 MG/ML INJ IVP PRN (06:05)
[2018-12-27] MEDS: 0.9 % Sodium Chloride 1,000 ML IVC SCH ×2 (06:56→14:27)
--- NOTE | 2018-12-27 07:29 | Internal Med History&Physical ---
Date of Encounter: 12/27/18 Time of Encounter: 05:04 Internal Medicine - H&P: HPI Chief complaint: Pyelonephritis Admitted From: Emergency Dept Plans for Post Hospital Care: Home History of present illness: Ms. Sales is a 33 year old female Patient presented to the ER with UTI. She is 12 weeks , and had been s een by her PCP a few days ago for evaluation for possible miscarriage. They performed an ultrasound and found the fetus was detectable with a normal heart rate. They at that time diagnosed her with a UTI, and started her on Keflex outpatient. She did not improve, and came to the ER for further evaluation. She noted fevers at home of 102. In the ER patient's vital signs were within normal limits. She did not meet sepsis criteria. CBC and BMP were both within normal limits. UA was negative for nitrites and had small leukocyte esterase. She had been on antibiotics that may have influenced these results. She was started on ceftriaxone and admitted to the hospital floor for further management. Upon my evaluation patient denies chest pain, nausea, vomiting, diarrhea and constipation. She has lower abdominal pain, primarily suprapubic. She denies significant family medical history, and is a full code. Past Med Surg Social Fam HX - Past Medical History Medical history: other Additional medical history: PYLONEPHRITIS. SEPSIS Psychiatric history: no psych history - Past Surgical History Surgical History: other Additional surgical history: GASTRIC BYPASS, SLEEVE - Social History Smoking Status: Never smoker Smokeless Tobacco Status: No Alcohol use: none Drug use: none - Family History Mother History Unknown: Yes Internal Medicine - H&P: Meds HYDROcodone/Acet 5/325 mg [[place] 5-325 mg] 1 tab PO Q4H PRN #15 tab 07/10/17 [Rx] Ondansetron ODT [Zofran ODT] 4 mg SL Q4HR #15 tab.rapdis 07/10/17 [Rx] Allergy/AdvReac Type Severity Reaction Status Date / Time No Known Allergies Allergy Verified 12/26/18 22:17 All Systems PM: A 10-system review of systems was performed and is negative for pertinent findings except as documented above in the HPI. - Constitutional Vitals: Temp Pulse Resp BP Pulse Ox 99.0 F 80 16 120/55 99 12/26/18 22:17 12/27/18 04:17 12/27/18 04:17 12/27/18 04:17 12/27/18 04:17 General appearance: Present: cooperative, mild distress, A&O X 3, pleasant, answers questions appropriately Exam: - - Head Head exam: Present: normal inspection - Eye Eye exam: Present: EOMI, normal appearance - Respiratory Respiratory exam: Present: CTAB. Absent: rales, respiratory distress, rhonchi, wheezes - Cardiovascular Cardiovascular exam: Present: RRR. Absent: diastolic murmur, systolic murmur - GI/Abdominal GI/Abdominal exam: Present: normal bowel sounds, soft, tenderness Additional comments: Suprapubic tenderness with palpation - Extremities Exam Extremities exam: Present: warm, radial pulses palpable and symmetrical. Absent: calf tenderness, pedal edema, tenderness - Neurological Exam Neurological exam: Present: no focal deficits, strengths equal and symetr throughout. Absent: motor sensory deficit, facial droop, speech deficit - Skin Skin exam: Present: dry, normal color, warm Internal Med - H&P Results - Labs CBC & Chem 7: 12/26/18 23:13 12/26/18 23:13 Labs: Short CBC 12/26/18 Range/Units 23:13 WBC 7.0 (4.3-11.1) K/mcL Hgb 11.5 (11.5-15.4) g/dL Hct 36.4 (35.3-44.9) % Plt Count 278 (140-400) K/mcL Neutrophils # 4.3 (1.6-8.9) K/mcL BMP 12/26/18 23:13 Sodium 135 L Potassium 3.7 Chloride 105 Carbon Dioxide 22 L BUN 9 Creatinine 0.56 L Glucose 87 Calcium 9.2 Liver Function 12/26/18 Range/Units 23:13 Total Bilirubin 0.2 L (0.3-1.0) mg/dL Direct Bilirubin 0.1 (0.0-0.2) mg/dL AST 13 (13-39) Units/L ALT 10 (7-52) Units/L Alkaline Phosphatase 65 (34-104) Units/L Albumin 4.0 (3.5-5.7) g/dL Urine 12/26/18 Range/Units 22:24 Urine Color Yellow (Yellow) Urine Clarity Cloudy A (Clear) Urine pH 5.5 (5.0-8.0) pH Units Ur Specific [place] > 1.030 H (1.010-1.025) Urine Protein Trace (Neg-Trace) mg/dL Urine Glucose (UA) Normal (Normal) mg/dL - Assessment and Plan (1) Pyelonephritis Current Visit: Yes Status: Acute Assessment and plan: Failed outpatient management. Started on ceftriaxone in the ER. Urine cultures pending. Continue Ceftriaxone Monitor for worsening signs of infection (2) Nausea & vomiting Current Visit: No Status: Acute Assessment and plan: With associated lower abdominal pain. Nausea has improved Continue to monitor Tylenol as needed for pain Qualifiers: Vomiting type: unspecified Vomiting Intractability: non-intractable Qualified Code(s): R11.2 - Nausea with vomiting, unspecified (3) 12 weeks gestation of Current Visit: Yes Status: Acute Assessment and plan: Management by OBGYN, called from ER, will consult if needed. (4) DVT prophylaxis Current Visit: No Status: Acute Assessment and plan: SCDs - Time Spent With Patient Total time spent is greater than 50% in coordination of care (as documented) at patient's floor/unit and/or counseling patient: Greater than 35 minutes
--- NOTE | 2018-12-27 14:11 | Event Note ---
Date of Encounter: 12/27/18 Time of Encounter: 14:10 I have seen and evaluated the patient at bedside. hemodynamically stable. CVA tenderness on exam. will continue IV antibiotics and IV fluids. blood culture ordered. will continue to follow up.
[2018-12-27] MEDS: Lactobacillus 1 EACH CAP.SPRINK PO SCH (20:42)
[2018-12-28 07:10] VITALS: BP 107/64
[2018-12-28] MEDS: Lactobacillus 1 EACH CAP.SPRINK PO SCH (08:42)
[2018-12-28] MEDS ORDERED: cefTRIAXone 1,000 MG in Water for inj. (sterile) 20 ML 10 ML IVP SCH (09:00)
[2018-12-28 10:37] LABS: Basophils % 0.3 %; Eosinophils # 0.1 K/mcL (0.0-0.6); Eosinophils % 2.1 %; Hematocrit 32.2 % (35.3-44.9); Hemoglobin 10.7 g/dL (11.5-15.4); Immature Granulocytes % 0.3 % (0-4); Lymphocytes # 1.6 K/mcL (0.6-4.6); Lymphocytes % 26.7 %; Mean Corpuscular HGB Conc 33.2 g/dL (31.6-35.5); Mean Corpuscular Hemoglobin 24.7 pg (28.0-33.3); Mean Corpuscular Volume 74.2 fL (83.0-100.0); Mean Platelet Volume 9.5 fL (9.4-12.4); Monocytes # 0.6 K/mcL (0.0-1.3); Monocytes % 10.1 %; Neutrophils # 3.7 K/mcL (1.6-8.9); Platelet Count 219 K/mcL (140-400); Red Blood Count 4.34 M/mcL (3.82-4.97); Red Cell Distribution Width 16.4 % (11.5-14.5); Segmented Neutrophils % 60.5 %
[2018-12-28 10:55] LABS: BUN/Creatinine Ratio 20 (6-26); Blood Urea Nitrogen 9 mg/dL (6-20); Calcium 8.8 mg/dL (8.6-10.3); Carbon Dioxide 22 mEq/L (23-29); Chloride 107 mEq/L (98-107); Glucose 88 mg/dL (70-105); Magnesium 1.7 mg/dL (1.6-2.6); Osmolality,Calculated 284 (280-300); Phosphorous 3.2 mg/dL (2.7-4.5); Sodium 138 mEq/L (136-145); eGFR For Non-African Americans > 60 (> 60)
--- NOTE | 2018-12-28 11:43 | Discharge Summary ---
Orders not resulted at time of discharge: Pending orders 12/27/18 11:41 Culture,Urine [RM] Stat 12/27/18 14:31 Culture,Blood [BC] Stat Date of Encounter: 12/28/18 Time of Encounter: 11:39 - Discharge Diagnosis (1) Pyelonephritis Priority: Primary Status: Acute (2) 12 weeks gestation of Priority: Primary Status: Acute (3) DVT prophylaxis Priority: Secondary Status: Chronic (4) Nausea & vomiting Priority: Secondary Status: Chronic Qualifiers: Vomiting type: unspecified Vomiting Intractability: non-intractable Qualified Code(s): R11.2 - Nausea with vomiting, unspecified Hospital course: Ms. Sales is a 33 year old female presented to the ER with UTI. She is 12 weeks , and had been seen by her PCP a few days ago for evaluation for possible miscarriage. They performed an ultrasound and found the fetus was detectable with a normal heart rate. They at that time diagnosed her with a UTI, and started her on Keflex outpatient. She did not improve, and came to the ER for further evaluation. She noted fevers at home of 102. Patient admitted to the hospital due to a UTI. managed with IV antibiotics and IV hydration. Urine culture: pending. Patient recommended to call to have the final report of her urine culture. Patient is being discharge before culture are finalized per her request, as she had started a new job and does not want to lose it. Patient hemodnycamically stable on ceftriaxone, her acute symptoms on presentation have resolved. She will be discharged on Augmentin. Strongly recommended to call to f/u with urine culture if medication adjustment is needed. - Time Spent with Patient Total time spent providing and/or coordinating discharge services: Time spent: Greater than 30 minutes (35) - Discharge Medications Prescriptions: New Amoxicillin/Clavulanate [Augmentin] 875 mg PO BIDWM 7 Days #14 tablet Lactobacillus [Culturelle] 1 each PO BID 10 Days #20 cap.sprink Continue Ondansetron ODT [Zofran ODT] 4 mg SL Q4HR #15 tab.rapdis HYDROcodone/Acet 5/325 mg [[place] 5-325 mg] 1 tab PO Q4H PRN #15 tab PRN Reason: Pain Home Medications: HYDROcodone/Acet 5/325 mg [[place] 5-325 mg] 1 tab PO Q4H PRN #15 tab 07/10/17 [Rx] Ondansetron ODT [Zofran ODT] 4 mg SL Q4HR #15 tab.rapdis 07/10/17 [Rx] Amoxicillin/Clavulanate [Augmentin] 875 mg PO BIDWM 7 Days #14 tablet 12/28/18 [Rx] Lactobacillus [Culturelle] 1 each PO BID 10 Days #20 cap.sprink 12/28/18 [Rx] Allergies/Adverse Reactions: Allergy/AdvReac Type Severity Reaction Status Date / Time No Known Allergies Allergy Verified 12/26/18 22:17 Date of admission: 12/27/18 03:27 Primary care physician: Denisse Boogie CNP - Constitutional Vitals: Temp Pulse Resp BP Pulse Ox 98.2 F 63 18 107/64 99 12/28/18 07:08 12/28/18 07:08 12/28/18 07:08 12/28/18 07:08 12/28/18 07:08 General appearance: Present: cooperative, mild distress, A&O X 3, pleasant, answers questions appropriately Exam: Vitals: reviewed General: Obese, Alert and oriented x4. In no distress Skin: Normal color, no rash, no lesions. HEENT: EOM, pupils equal, round and reactive. Cardiovascular: RRR, normal S1 & S2, no rubs, murmurs or gallops. Lungs: CTA b/l, no wheezes or crackles. Abdomen: Soft, non-tender, no rigidity. Extremities: No deformity, no edema or tenderness, no joint swelling or clubbing. Neurological: Normal cognition and motor skills. Rest of the physical exam is non contributory - Patient Status Disposition: Home, Self-Care Condition: Good Functional capacity at discharge: independent ambulation Overall status at discharge: patient is back to baseline - Discharge Instructions Follow Up With: Denisse Boogie CNP [Primary Care Provider] - - Diet and Activity Activity: resume usual activities as tolerated Diet: low salt diet
== END 2018-12-28 12:38 | disposition home or self-care (01) ==
LOC: EMEROOARM 21:52 → 2ANU 21:52
PROVIDERS: ADMIT Family Medicine; ATTEND Internal Medicine

== ENCOUNTER 2019-04-28 15:46 | Observation (INO) ==
[2019-04-28 16:31] LABS: Bilirubin,Urine Negative (Negative); Blood,Urine Negative (Negative); Clarity,Urine Clear (Clear); Color,Urine Yellow (Yellow); Glucose,Urine (UA) Normal (Normal); Ketones,Urine Negative (Negative); Leukocyte Esterase,Urine Negative (Negative); Nitrite,Urine Negative (Negative); Protein,Urine Negative (Neg-Trace); Specific Gravity,Urine 1.027 (1.010-1.025); Urobilinogen,Urine Normal (Normal)
[2019-04-28 16:35] LABS: Basophils % 0.3 %; Eosinophils # 0.1 K/mcL (0.0-0.6); Eosinophils % 0.5 %; Hematocrit 31.9 % (35.3-44.9); Immature Granulocytes % 0.6 % (0-4); Lymphocytes # 2.2 K/mcL (0.6-4.6); Lymphocytes % 18.2 %; Mean Corpuscular HGB Conc 31.3 g/dL (31.6-35.5); Mean Corpuscular Hemoglobin 25.2 pg (28.0-33.3); Mean Corpuscular Volume 80.4 fL (83.0-100.0); Mean Platelet Volume 10.7 fL (9.4-12.4); Monocytes # 0.8 K/mcL (0.0-1.3); Neutrophils # 8.7 K/mcL (1.6-8.9); Platelet Count 265 K/mcL (140-400); Red Blood Count 3.97 M/mcL (3.82-4.97); Red Cell Distribution Width 14.4 % (11.5-14.5); Segmented Neutrophils % 73.4 %; White Blood Count 11.8 K/mcL (4.3-11.1)
[2019-04-28 16:41] LABS: Protein/Creatinine Ratio,Urine 0.1 mg/mg (0.00-0.20)
[2019-04-28 16:53] LABS: Alanine Aminotransferase 8 Units/L (7-52); Aspartate Amino Transferase 11 Units/L (13-39); BUN/Creatinine Ratio 14 (6-26); Blood Urea Nitrogen 7 mg/dL (6-20); Lactate Dehydrogenase 107 Units/L (140-271); Uric Acid 4.1 mg/dL (2.3-7.6); eGFR For African Americans > 60 (> 60); eGFR For Non-African Americans > 60 (> 60)
--- NOTE | 2019-04-28 17:50 | OB/GYN Progress Note ---
Date of Encounter: 04/28/19 Time of Encounter: 17:48 - Assessment and Plan (1) 29 weeks gestation of Current Visit: Yes Status: Acute (2) Elevated blood pressure affecting in third trimester, antepartum Current Visit: Yes Status: Acute Normotensive in triage, PIH labs negative, discharged home with and labor and PIH and when to return to triage precautions. Patient verbalizes understanding and is in agreement with plan Subjective - Subjective Interval history: 29+4 weeks gestation presents to triage for PIH evaluation. She had elevated blood pressures in the office. Denies headache blurry vision changes. Reports good movement, denies current vaginal bleeding, did have some over the weekend. Has had some abdominal tightening but cervix was found to be closed thick and high in office by Dr. Lo prior to triage Antepartum ROS: movement normal, contractions, no loss of fluid, no vaginal bleeding Objective - Vital Signs Vital Signs: Intake and Output 04/28/19 04/28/19 04/28/19 07:59 15:59 23:59 Other: Weight 146.329 kg Patient Weight 04/28/19 23:59 Weight 146.329 kg - Exam FHR: auscultation normal FHR comments: Baseline 135, upper preoperative for gestational age Abdomen: Present: soft, gravid - Labs Labs: Abnormal lab results WBC 11.8 K/mcL (4.3-11.1) H 04/28/19 16:00 Hgb 10.0 g/dL (11.5-15.4) L 04/28/19 16:00 Hct 31.9 % (35.3-44.9) L 04/28/19 16:00 MCV 80.4 fL (83.0-100.0) L 04/28/19 16:00 MCH 25.2 pg (28.0-33.3) L 04/28/19 16:00 MCHC 31.3 g/dL (31.6-35.5) L 04/28/19 16:00 Creatinine 0.49 mg/dL (0.60-1.20) L 04/28/19 16:00 AST 11 Units/L (13-39) L 04/28/19 16:00 Lactate Dehydrogenase 107 Units/L (140-271) L 04/28/19 16:00 Ur Specific [place] 1.027 (1.010-1.025) H 04/28/19 16:00 Urine Total Protein 19 mg/dL (1-14) H 04/28/19 16:00
== END 2019-04-28 17:58 | disposition home or self-care (01) ==
LOC: 1NENULAB
PROVIDERS: ADMIT Advanced Practice Midwife; ATTEND Advanced Practice Midwife

== ENCOUNTER → 2019-06-19 16:26 | Observation (INO) ==
--- NOTE | 2019-06-19 16:04 | Discharge Summary ---
Date of Encounter: 06/19/19 Time of Encounter: 16:03 - Discharge Diagnosis (1) 37 weeks gestation of Priority: Primary Status: Acute Comments: Follow-up with Dr. Calderon as scheduled Discharge home (2) NST (non-stress test) reactive on surveillance Priority: Secondary Status: Acute Comments: Reactive NST- movement observed within minutes of placing her on NST - Discharge Medications Prescriptions: No Action Tablet Home Medications: Tablet 04/28/19 [History] Allergies/Adverse Reactions: Allergy/AdvReac Type Severity Reaction Status Date / Time No Known Allergies Allergy Verified 12/26/18 22:17 Date of admission: 06/19/19 15:18 Primary care physician: PCP NONE Discharging clinician: Hodan Webb Anticipated date of discharge: 06/19/19 - Patient Status Disposition: Home, Self-Care Condition: Good Functional capacity at discharge: independent ambulation Overall status at discharge: patient is progressing back to baseline - Discharge Instructions Follow Up With: NONE,PCP [Primary Care Provider] - Ricky Calderon MD [Partnered Physician] - - Diet and Activity Activity: increase activity as tolerated Diet: regular diet Hospital Course [employer] Reason for admission: other Discharge diagnosis: other Hospital course: Patient presents from home with complaint of decreased movement since last night. She reports the last time she felt the baby move was last night. She denies leakage of fluid, contractions, vaginal bleeding. She was placed on NST and within 3 minutes began to feel the baby move again. She had a reactive NST and was discharged home with appropriate follow-up to see Dr. Calderon as scheduled. Time Attestation: Total time spent providing and/or coordinating discharge services: Time Spent: Less than 30 minutes Exam - Constitutional General appearance IM: A&O X 3, morbidly obese, pleasant, no acute distress, answers questions appropriately - Respiratory Respiratory exam: Present: CTAB - Cardiovascular Cardiovascular exam IM: Present: RRR, +S1, +S2 - GI/Abdominal GI/Abdominal exam IM: normal bowel sounds, no peritoneal signs - Rectal Rectal exam: deferred - Uterine Tone: Firm - Extremities Exam Extremities exam IM: Present: full ROM, normal capillary refill, normal inspection, radial pulses palpable and symmetrical - Neurological Exam Neurological exam: alert, oriented X3, strengths equal and symetr throughout - VTE Reasons for not Prescribing Prophylaxis: Treatment not Indicated - Low risk for VTE
== END | disposition home or self-care (01) ==
LOC: 1NENULAB
PROVIDERS: ADMIT Advanced Practice Midwife; ATTEND Advanced Practice Midwife

== ENCOUNTER 2019-07-04 08:00 | Inpatient (IN) ==
[2019-07-04] MEDS ORDERED: Naloxone 0.4 MG/ML INJ IVP PRN (08:45)
[2019-07-04] MEDS ORDERED: Metoclopramide 10 MG/2 ML VIAL IVP PRN (08:45)
[2019-07-04] MEDS ORDERED: *HR* Nalbuphine 10 MG/ML AMPUL IVP PRN (08:45)
[2019-07-04] MEDS ORDERED: Ringers Solution, Lactated 1,000 ML IVC SCH (08:45)
[2019-07-04] MEDS ORDERED: Famotidine 20 MG/2 ML VIAL IVP PRN (08:45)
[2019-07-04] MEDS ORDERED: Oxytocin 20 units/ LR 1000 mL 20 UNIT/1,000 ML BAG IVC SCH ×2 (08:45→18:36)
[2019-07-04] MEDS ORDERED: Ondansetron 4 MG/2 ML VIAL IVP PRN (08:47)
[2019-07-04] MEDS ORDERED: Lidocaine 1% 20 ML MDV INFILT PRN (08:47)
[2019-07-04 09:10] LABS: Basophils % 0.2 %; Eosinophils # 0.1 K/mcL (0.0-0.6); Eosinophils % 0.5 %; Hematocrit 29.9 % (35.3-44.9); Hemoglobin 9.4 g/dL (11.5-15.4); Immature Granulocytes % 0.7 % (0-4); Lymphocytes % 15.2 %; Mean Corpuscular HGB Conc 31.4 g/dL (31.6-35.5); Mean Corpuscular Hemoglobin 23.9 pg (28.0-33.3); Mean Corpuscular Volume 75.9 fL (83.0-100.0); Mean Platelet Volume 10.8 fL (9.4-12.4); Monocytes # 0.9 K/mcL (0.0-1.3); Monocytes % 7.2 %; Neutrophils # 9.9 K/mcL (1.6-8.9); Platelet Count 267 K/mcL (140-400); Red Blood Count 3.94 M/mcL (3.82-4.97); Red Cell Distribution Width 14.9 % (11.5-14.5); Segmented Neutrophils % 76.2 %
[2019-07-04] MEDS ORDERED: Oxytocin 20 units/ LR 1000 mL 20 UNIT/1,000 ML BAG IVC ONE (09:26)
[2019-07-04] MEDS ORDERED: Ringers Solution, Lactated 1,000 ML ONE (09:26)
[2019-07-04 09:40] LABS: Amphetamine Screen,Urine Negative ng/mL (Cutoff=1000); Barbiturate Screen,Urine Negative ng/mL (Cutoff=200); Benzodiazepines Screen,Urine Negative ng/mL (Cutoff=200); Cannabinoid Screen,Urine Negative ng/mL (Cutoff = 50); Cocaine Screen,Urine Negative ng/mL (Cutoff= 300); Opiate Screen,Urine Negative ng/mL (Cutoff=300); Phencyclidine Screen,Urine Negative ng/mL (Cutoff=25)
[2019-07-04] MEDS ORDERED: Acetaminophen 325 MG TABLET PO PRN (18:36)
[2019-07-04] MEDS ORDERED: Measles/Mumps/Rubella Vacc 0.5 ML VIAL SQ PRN (18:36)
[2019-07-04] MEDS ORDERED: Rho Immune Globulin 1,500 UNIT SYRINGE IM PRN (18:36)
[2019-07-05 08:02] LABS: Basophils # 0.1 K/mcL (0.0-0.2); Basophils % 0.4 %; Eosinophils # 0.2 K/mcL (0.0-0.6); Eosinophils % 1.6 %; Hematocrit 27.3 % (35.3-44.9); Hemoglobin 8.8 g/dL (11.5-15.4); Immature Granulocytes % 0.9 % (0-4); Lymphocytes # 2.7 K/mcL (0.6-4.6); Lymphocytes % 17.9 %; Mean Corpuscular HGB Conc 32.2 g/dL (31.6-35.5); Mean Corpuscular Hemoglobin 24.1 pg (28.0-33.3); Mean Corpuscular Volume 74.8 fL (83.0-100.0); Mean Platelet Volume 11.2 fL (9.4-12.4); Monocytes # 1.1 K/mcL (0.0-1.3); Monocytes % 6.9 %; Neutrophils # 10.9 K/mcL (1.6-8.9); Nucleated Red Blood Cells 0.2 /100 WBC (0); Platelet Count 224 K/mcL (140-400); Red Blood Count 3.65 M/mcL (3.82-4.97); Red Cell Distribution Width 14.9 % (11.5-14.5); Segmented Neutrophils % 72.3 %; White Blood Count 15.1 K/mcL (4.3-11.1)
[2019-07-05] MEDS ORDERED: Prenatal Vit/FA 1 EACH TABLET PO SCH (09:00)
[2019-07-05 16:58] VITALS: BP 139/85
== END 2019-07-05 18:17 | disposition home or self-care (01) | DRG 560 ==
LOC: 1NENULAB 08:06 → 1NENUOBS 18:21
PROVIDERS: ADMIT Obstetrics & Gynecology; ATTEND Obstetrics & Gynecology